=== PATIENT | female | born 2000 | race African-American/Black ===

== ENCOUNTER 2024-03-07 15:28 | Emergency (ER) | payer OTHER ==
[~2024-03-07] VITALS: Ht 160 cm; Wt 54.0 kg
[2024-03-07 15:30] VITALS: O2SAT 98
[2024-03-07] MEDS: IPRATROPIUM BROMIDE (0.02%) 0.5MG/2.5ML NEB HHN STA (16:00)
[2024-03-07] MEDS: ALBUTEROL (0.083%) 2.5MG/3ML NEB HHN STA (16:00)
[2024-03-07 16:06] VITALS: PULSE 95; RESP 22
[2024-03-07] MEDS: METHYLPREDNISOLONE SOD SUCC 125MG/2ML (ACT-O-VIAL) IM STA (16:13)
[2024-03-07] MEDS: ACETAMINOPHEN 325MG TABLET PO STA (16:13)
[2024-03-07] MEDS ORDERED: ALBU18HF2 IH (17:03)
[2024-03-07] MEDS ORDERED: P50 MT (17:03)
[2024-03-07] MEDS ORDERED: NAPR-681 PO (17:03)
[2024-03-07] MEDS ORDERED: INHA1SPA3 INH (17:03)
[2024-03-07 17:07] VITALS: BP 115/68; PULSE 84; RESP 22; TEMP 36.89184; O2SAT 98
[2024-03-07] MEDS ORDERED: ALBU2.5V13 NEB (17:11)
== END 2024-03-07 17:15 | disposition home or self-care (01) ==
LOC: ER 15:28
DX: J06.9 Acute upper respiratory infection, unspecified (principal); J45.901 Unspecified asthma with (acute) exacerbation; I10 Essential (primary) hypertension
CPT/HCPCS: 71045; 94640; 96372; 99283; J2919; Z7610 ×3